=== PATIENT | male | born 1995 | race Two or more races ===

== ENCOUNTER 2018-03-01 12:04 | Emergency (ER) | payer SELFPAY ==
[~2018-03-01] VITALS: Ht 162.6 cm; Wt 69.0 kg
[2018-03-01 12:16] VITALS: BP 132/93
[2018-03-01] MEDS ORDERED: PROPOFOL 10 MG/ML, 20ML ONE (13:24)
[2018-03-01] MEDS ORDERED: FENTANYL PF 100 MCG/2ML ONE (13:24)
[2018-03-01] MEDS ORDERED: SODIUM CHLORIDE 0.9% 1,000ML IVBOLUS ONE (13:30)
[2018-03-01] MEDS ORDERED: SODIUM CHLORIDE FLUSH 10ML SYR IVF ONE (13:30)
[2018-03-01] MEDS ORDERED: FENTANYL PF 100 MCG/2ML IVPush PRN (13:30)
[2018-03-01] MEDS ORDERED: PROPOFOL 10 MG/ML, 20ML IVPush ONE (13:30)
== END 2018-03-01 15:15 | disposition home or self-care (01) ==
LOC: ED 14:16
DX: S43.004A Unspecified dislocation of right shoulder joint, initial encounter (principal); X50.9XXA Other and unspecified overexertion or strenuous movements or postures, initial encounter; Y93.66 Activity, soccer; Y92.322 Soccer field as the place of occurrence of the external cause; Y99.8 Other external cause status
CPT/HCPCS: 23650; 73020; 73030; 99152; 99285; J2704; J7030